=== PATIENT | male | born 1990 | race Asian ===

== ENCOUNTER 2017-01-07 01:13 | Emergency (ER) | payer OTHER ==
[2017-01-07 01:19] VITALS: O2SAT 96
[2017-01-07] MEDS ORDERED: NS 1,000 ML IV ONE (01:27)
--- NOTE | 2017-01-07 01:29 | EDPHY ---
H & P Stated Complaint: fever, abd pain x 6 days Time Seen by Provider: 01/07/17 01:23 HPI/ROS: CHIEF COMPLAINT: Right upper quadrant pain HISTORY OF PRESENT ILLNESS: The patient is a 26-year-old man who states that he has had right upper quadrant pain for the last 6 days. He states that he thinks that it is gas because when he stands up it causes severe pain and lightheadedness but when he lies down he feels much better and is able to burp and passed gas. This makes his symptoms go away until he stands up again. He is not had any vomiting or nausea. No diarrhea. He had a fever last week but it was associated with a sore throat runny nose that have now resolved. He denies trauma. He denies lower abdominal pain. No constipation. REVIEW OF SYSTEMS: Constitutional: denies: chills, fever, recent illness, recent injury EENTM: denies: blurred vision, double vision, nose congestion Respiratory: denies: cough, shortness of breath Cardiac: denies: chest pain, irregular heart rate, lightheadedness, palpitations Gastrointestinal/Abdominal: See HPI Genitourinary: denies: dysuria, frequency, hematuria, pain Musculoskeletal: denies: joint pain, muscle pain Skin: denies: lesions, rash, jaundice, bruising Neurological: denies: headache, numbness, paresthesia, tingling, dizziness, weakness Hematologic/Lymphatic: denies: blood clots, easy bleeding, easy bruising Immunologic/allergic: denies: HIV/AIDS, transplant EXAM: GENERAL: Well-appearing, well-nourished and in no acute distress. HEAD: Atraumatic, normocephalic. EYES: Pupils equal round and reactive to light, extraocular movements intact, sclera anicteric, conjunctiva are normal. ENT: TMs normal, nares patent, oropharynx clear without exudates. Moist mucous membranes. NECK: Normal range of motion, supple without lymphadenopathy or JVD. LUNGS: Breath sounds clear to auscultation bilaterally and equal. No wheezes rales or rhonchi. HEART: Regular rate and rhythm without murmurs, rubs or gallops. ABDOMEN: Soft, nontender, normoactive bowel sounds. No guarding, no rebound. No masses appreciated. BACK: No CVA tenderness, no spinal tenderness, step-offs or deformities EXTREMITIES: Normal range of motion, no pitting or edema. No clubbing or cyanosis. NEUROLOGICAL: Cranial nerves II through XII grossly intact. Normal speech, normal gait. 5/5 strength, normal movement in all extremities, normal sensation PSYCH: Normal mood, normal affect. SKIN: Warm, dry, normal turgor, no visible rashes or lesions. Source: Patient Exam Limitations: No limitations - Personal History Current Tetanus/Diphtheria Vaccine: Unsure - Medical/Surgical History Hx Asthma: No Hx Chronic Respiratory Disease: No Hx Diabetes: No Hx Cardiac Disease: No Hx Renal Disease: No Hx Cirrhosis: No Hx Alcoholism: No Hx HIV/AIDS: No Hx Splenectomy or Spleen Trauma: No Other PMH: PMHx: denies. PSHx: Tonsillectomy - Family History Significant Family History: No pertinent family hx - Social History Smoking Status: Never smoked Alcohol Use: Sober Drug Use: None Constitutional: Initial Vital Signs Temperature (C) 36.6 C 01/07/17 01:16 Heart Rate 54 L 01/07/17 01:16 Respiratory Rate 14 01/07/17 01:16 Blood Pressure 130/60 H 01/07/17 01:16 O2 Sat (%) 96 01/07/17 01:16 O2 Delivery Mode Room Air Allergies/Adverse Reactions: No Known Allergies Allergy (Verified 08/06/13 04:05) Home Medications: Medication Instructions Recorded Simethicone [Mylicon] 80 mg PO TID PRN #30 tabchew 01/07/17 Medical Decision Making - Diagnostics Imaging: Discussed imaging studies w/ call center operations manager Radiologist ED Course/Re-evaluation: The patient's abdominal exam is benign. Negative Fernandez sign, will obtain lab work and ultrasound to evaluate further. 2:30 a.m.. The patient states that he feels completely better after receiving IV fluids. We discussed the small microscopic hematuria. He states that his brother has kidney stones and this does not seem like a kidney stone to him. He does not have any urinary complaints. He thinks that this is primarily gas. I will prescribe him simethicone and he will follow up with his regular doctor. We discussed indications for returning to the emergency department. His lab work otherwise is completely reassuring. Differential Diagnosis: Partial list of the Differential diagnosis considered include but were not limited to; gas, biliary disease, and although unlikely based on the history and physical exam, I also considered urinary tract infection, kidney stone, appendicitis, obstruction, constipation . I discussed these differential diagnoses and the plan with the patient as well as the usual and expected course. The patient understands that the diagnosis is provisional and that in medicine we are not always correct and that further workup is often warranted. Usual and customary warnings were given. All of the patient's questions were answered. The patient was instructed to return to the emergency department should the symptoms at all worsen or return, otherwise to followup with the physician as we discussed. - Data Points Laboratory Results: Laboratory Results 01/07/17 01:35 01/07/17 01:35 01/07/17 01/07/17 01/07/17 02:09 01:35 01:35 WBC 4.60 10^3/uL 10^3/uL (3.80-9.50) RBC 6.42 10^6/uL H 10^6/uL (4.40-6.38) Hgb 14.4 g/dL g/dL (13.7-17.5) Hct 45.1 % % (40.0-51.0) MCV 70.2 fL L fL (81.5-99.8) MCH 22.4 pg L pg (27.9-34.1) MCHC 31.9 g/dL L g/dL (32.4-36.7) RDW 14.8 % % (11.5-15.2) Plt Count 219 10^3/uL 10^3/uL (150-400) MPV 11.7 fL fL (8.7-11.7) Neut % (Auto) 30.4 % L % (39.3-74.2) Lymph % (Auto) 50.7 % H % (15.0-45.0) [place] % (Auto) 11.1 % % (4.5-13.0) Eos % (Auto) 6.5 % % (0.6-7.6) Baso % (Auto) 1.3 % % (0.3-1.7) Nucleat RBC Rel Count 0.0 % % (0.0-0.2) Absolute Neuts (auto) 1.40 10^3/uL L 10^3/uL (1.70-6.50) Absolute Lymphs (auto) 2.33 10^3/uL 10^3/uL (1.00-3.00) Absolute Monos (auto) 0.51 10^3/uL 10^3/uL (0.30-0.80) Absolute Eos (auto) 0.30 10^3/uL 10^3/uL (0.03-0.40) Absolute Basos (auto) 0.06 10^3/uL 10^3/uL (0.02-0.10) Absolute Nucleated RBC 0.00 10^3/uL 10^3/uL (0-0.01) Immature Gran % 0.0 % % (0.0-1.1) Immature Gran # 0.00 10^3/uL 10^3/uL (0.00-0.10) Sodium 142 mEq/L mEq/L (134-144) Potassium 4.2 mEq/L mEq/L (3.5-5.2) Chloride 101 mEq/L mEq/L (97-110) Carbon Dioxide 25 mEq/l mEq/l (22-31) Anion Gap 16 mEq/L mEq/L (8-16) BUN 17 mg/dL mg/dL (7-23) Creatinine 0.9 mg/dL mg/dL (0.7-1.3) Estimated GFR > 60 Glucose 99 mg/dL mg/dL (70-100) Calcium 9.9 mg/dL mg/dL (8.5-10.4) Total Bilirubin 0.6 mg/dL mg/dL (0.1-1.4) Conjugated Bilirubin 0.3 mg/dL mg/dL (0.0-0.5) Unconjugated Bilirubin 0.3 mg/dL mg/dL (0.0-1.1) AST 25 IU/L IU/L (17-59) ALT 46 IU/L IU/L (21-72) Alkaline Phosphatase 69 IU/L IU/L (38-126) Total Protein 7.9 g/dL g/dL (6.3-8.2) Albumin 4.7 g/dL g/dL (3.5-5.0) Lipase 61 IU/L IU/L (23-300) Urine Color YELLOW Urine Appearance CLEAR Urine pH 6.0 (5.0-7.5) Ur Specific [place] 1.021 (1.002-1.030) Urine Protein NEGATIVE (NEGATIVE) Urine Ketones NEGATIVE (NEGATIVE) Urine Blood NEGATIVE (NEGATIVE) Urine Nitrate NEGATIVE (NEGATIVE) Urine Bilirubin NEGATIVE (NEGATIVE) Urine Urobilinogen NEGATIVE EU EU (0.2-1.0) Ur Leukocyte Esterase NEGATIVE (NEGATIVE) Urine RBC 15-25 /hpf H /hpf (0-3) Urine WBC 1-3 /hpf /hpf (0-3) Ur Epithelial Cells TRACE /lpf /lpf (NONE-1+) Urine Mucus TRACE /lpf /lpf (NONE-1+) Urine Sperm PRESENT /hpf /hpf (NONE SEEN) Urine Glucose NEGATIVE (NEGATIVE) Medications Given: Discontinued Medications Sodium Chloride (Ns) 1,000 mls @ 0 mls/hr IV EDNOW ONE; Wide Open PRN Reason: Protocol Stop: 01/07/17 01:28 Last Admin: 01/07/17 02:08 Dose: 1,000 mls Simethicone (Mylicon) 80 mg PO EDNOW ONE Stop: 01/07/17 02:16 Last Admin: 01/07/17 02:47 Dose: 80 mg Departure - Departure Disposition: Home, Routine, Self-Care Clinical Impression: Chronic right upper quadrant pain Condition: Fair Instructions: Gas and Bloating (ED), Abdominal Pain (ED) Referrals: NONE *PRIMARY CARE P,. [Primary Care Provider] - As per Instructions Ritu Isaacs MD [Medical Doctor] - As per Instructions Prescriptions: Simethicone [Mylicon] 80 mg PO TID PRN #30 tabchew PRN Reason: Gas
[2017-01-07 01:39] LABS: ADD DIFF? NO; ADD MORPH? NO; ADD SCAN? NO; ATYPICAL LYMPHOCYTE FLAG 10 (0-99); FRAGMENT RBC FLAG 20 (0-99); HEMATOCRIT 45.1 % (40.0-51.0); HEMOGLOBIN 14.4 g/dL (13.7-17.5); LEFT SHIFT FLG 0 (0-99); LIPEMIA HEMOLYSIS FLAG 80 (0-99); MEAN CELL HEMOGLOBIN 22.4 pg (27.9-34.1); MEAN CELL HEMOGLOBIN CONCENTR. 31.9 g/dL (32.4-36.7); MEAN CELL VOLUME 70.2 fL (81.5-99.8); MEAN PLATELET VOLUME 11.7 fL (8.7-11.7); PLATELET CLUMPS FLAG 0 (0-99); PLATELET COUNT 219 10^3/uL (150-400); RED BLOOD CELL COUNT 6.42 10^6/uL (4.40-6.38); RED CELL DISTRIBUTION WIDTH 14.8 % (11.5-15.2)
[2017-01-07 01:52] LABS: ALANINE AMINOTRANSFERASE 46 IU/L (21-72); ALBUMIN 4.7 g/dL (3.5-5.0); ALKALINE PHOSPHATASE 69 IU/L (38-126); ANION GAP 16 mEq/L (8-16); ASPARTATE AMINOTRANSFERASE 25 IU/L (17-59); BILIRUBIN,TOTAL 0.6 mg/dL (0.1-1.4); BILIRUBIN-CONJUGATED 0.3 mg/dL (0.0-0.5); BILIRUBIN-UNCONJUGATED 0.3 mg/dL (0.0-1.1); CALCIUM 9.9 mg/dL (8.5-10.4); CARBON DIOXIDE 25 mEq/l (22-31); CHLORIDE 101 mEq/L (97-110); CREATININE 0.9 mg/dL (0.7-1.3); GLOMERULAR FILTRATION RATE > 60; GLUCOSE 99 mg/dL (70-100); POTASSIUM 4.2 mEq/L (3.5-5.2); SODIUM 142 mEq/L (134-144); TOTAL PROTEIN 7.9 g/dL (6.3-8.2)
[2017-01-07] MEDS ORDERED: SIMETHICONE 80 MG TAB CHEW PO ONE (02:15)
[2017-01-07 02:18] LABS: COLOR YELLOW; LEUKOCYTE ESTERASE,URINE NEGATIVE (NEGATIVE); NITRITE,URINE NEGATIVE (NEGATIVE)
[2017-01-07 02:23] LABS: MUCUS TRACE /lpf (NONE-1+); RBC,URINE 15-25 /hpf (0-3)
[2017-01-07 02:51] VITALS: BP 128/75; PULSE 81; RESP 16; TEMP 98.2
== END 2017-01-07 02:50 | disposition home or self-care (01) ==
DX: R10.11 Right upper quadrant pain (principal); G89.29 Other chronic pain; E86.9 Volume depletion, unspecified

== ENCOUNTER 2017-05-18 09:11 | Emergency (ER) | payer OTHER ==
[2017-05-18] MEDS ORDERED: NS 1,000 ML IV ONE (09:29)
[2017-05-18] MEDS ORDERED: ONDANSETRON 4 MG/2 ML VIAL IVP ONE (09:29)
[2017-05-18] MEDS ORDERED: ONDANSETRON DISINTEGRATING 4 MG TAB PO ONE (09:34)
[2017-05-18] MEDS ORDERED: PROMETHAZINE HCL 25 MG/ML INJ IVP ONE (09:39)
--- NOTE | 2017-05-18 09:45 | EDPHY ---
General Narrative: CHIEF COMPLAINT: Vomiting and diarrhea HISTORY OF PRESENT ILLNESS: Patient complains of waking at 4:00 a.m. with sudden onset of vomiting. He had multiple episodes was at 4:00 a.m. 530 along with chills. Went back to sleep for couple of hours. He awoke again at 8:00 a.m. with 4 episodes of vomiting and some diarrhea. There was no blood in the emesis or stool. No abdominal pain but there was some cramping with dry heaving. He was also chills and sweating. He has had no headache, neck pain or stiffness, chest pain, cough, shortness of breath, body aches or fever. He feels that this is food-borne as his friend has had similar complaints in the ate the same meal at a restaurant last night. He has no trauma or injury. No other associated complaints or modifying factors. REVIEW OF SYSTEMS: Ten systems reviewed and are negative unless otherwise noted in the HPI PCP: None locally. SPECIALISTS: None PAST MEDICAL HISTORY: Orthopedic injuries PAST SURGICAL HISTORY: Orthopedic. Remotely SOCIAL HISTORY: Nonsmoker. No alcohol or drug use. 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 Originally from [facility] FAMILY HISTORY: Noncontributory EXAMINATION General Appearance: Alert, no distress Head: normocephalic, atraumatic Eyes: Pupils equal and round, no conjunctival pallor or injection ENT, Mouth: Mucous membranes slightly dry. Uvula is midline and airway is widely patent. Neck: Normal inspection, supple, non-tender Respiratory: Lungs are clear to auscultation Cardiovascular: Regular rate and rhythm. No murmur Gastrointestinal: Abdomen is soft and nontender. Back: non-tender, no bony abnormalities Neurological: A&O, nonfocal, normal gait Skin: Warm and dry, no rash Extremities: Nontender, no pedal edema Psychiatric: Mood and affect normal DIFFERENTIAL DIAGNOSES: Including but not limited to food-borne illness, gastroenteritis, enteritis, gastritis MDM: 9:40 a.m. Nausea, vomiting diarrhea and timeframe that is consistent with food borne illness. He also has a friend who ate the same meal with similar symptoms this morning. He continues to feel nauseated and has a difficulty keeping liquids down, thus I will order L of IV fluid and nausea medications. His abdominal exam is benign. Vital signs are stable. I do not feel he warrants any imaging or further testing. He is resting comfortably in no acute distress without active vomiting. 10:30 a.m. Laboratory studies are unremarkable with mild abnormalities consistent with his illness. I have re-evaluated the patient is feeling much better after the IV fluid, promethazine and Zofran. I do feel he is stable for discharge home. Discharged home with nausea medications. I discussed the likely self-limiting nature of this illness. We discussed ED precautions. We discussed follow up with [facility] at . He is comfortable this plan and discharged home stable condition. SUPERVISION: Patient was independently examined, but I discussed the case with my secondary supervising physician Dr. Rushing - History Smoking Status: Never smoked - Objective Vital Signs: Initial Vital Signs Temperature (C) 97.5 F 05/18/17 09:13 Heart Rate 78 05/18/17 09:13 Respiratory Rate 18 05/18/17 09:13 Blood Pressure 101/48 L 05/18/17 09:13 O2 Sat (%) 97 05/18/17 09:13 O2 Delivery Mode Room Air Allergies/Adverse Reactions: No Known Allergies Allergy (Verified 05/18/17 09:12) Home Medications: Medication Instructions Recorded Ondansetron Odt [Zofran Odt 4 mg 4 mg PO Q6 PRN #12 tab 05/18/17 (*)] Promethazine HCl [Phenergan 25mg 25 mg PO Q8 PRN #12 tab 05/18/17 (*)] Laboratory Results: Laboratory Results 05/18/17 09:55 05/18/17 09:55 05/18/17 05/18/17 09:55 09:55 WBC 8.22 10^3/uL 10^3/uL (3.80-9.50) RBC 6.40 10^6/uL H 10^6/uL (4.40-6.38) Hgb 14.4 g/dL g/dL (13.7-17.5) Hct 43.4 % % (40.0-51.0) MCV 67.8 fL L fL (81.5-99.8) MCH 22.5 pg L pg (27.9-34.1) MCHC 33.2 g/dL g/dL (32.4-36.7) RDW 15.2 % % (11.5-15.2) Plt Count 174 10^3/uL 10^3/uL (150-400) MPV 11.7 fL fL (8.7-11.7) Neut % (Auto) 90.4 % H % (39.3-74.2) Lymph % (Auto) 4.3 % L % (15.0-45.0) [place] % (Auto) 4.5 % % (4.5-13.0) Eos % (Auto) 0.4 % L % (0.6-7.6) Baso % (Auto) 0.2 % L % (0.3-1.7) Nucleat RBC Rel Count 0.0 % % (0.0-0.2) Absolute Neuts (auto) 7.43 10^3/uL H 10^3/uL (1.70-6.50) Absolute Lymphs (auto) 0.35 10^3/uL L 10^3/uL (1.00-3.00) Absolute Monos (auto) 0.37 10^3/uL 10^3/uL (0.30-0.80) Absolute Eos (auto) 0.03 10^3/uL 10^3/uL (0.03-0.40) Absolute Basos (auto) 0.02 10^3/uL 10^3/uL (0.02-0.10) Absolute Nucleated RBC 0.00 10^3/uL 10^3/uL (0-0.01) Immature Gran % 0.2 % % (0.0-1.1) Immature Gran # 0.02 10^3/uL 10^3/uL (0.00-0.10) Platelet Estimate Pending Smear Review By Pending Sodium 144 mEq/L mEq/L (134-144) Potassium 4.7 mEq/L mEq/L (3.5-5.2) Chloride 103 mEq/L mEq/L (97-110) Carbon Dioxide 27 mEq/l mEq/l (22-31) Anion Gap 14 mEq/L mEq/L (8-16) BUN 23 mg/dL mg/dL (7-23) Creatinine 1.0 mg/dL mg/dL (0.7-1.3) Estimated GFR > 60 Glucose 118 mg/dL H mg/dL (70-100) Calcium 9.7 mg/dL mg/dL (8.5-10.4) Lipase 54 IU/L IU/L (23-300) Medications Given: Discontinued Medications Sodium Chloride (Ns) 1,000 mls @ 0 mls/hr IV EDNOW ONE; Wide Open PRN Reason: Protocol Stop: 05/18/17 09:30 Last Admin: 05/18/17 09:51 Dose: 1,000 mls Ondansetron HCl (Zofran Odt) 4 mg PO EDNOW ONE Stop: 05/18/17 09:35 Last Admin: 05/18/17 09:39 Dose: Not Given Ondansetron HCl (Zofran) 4 mg IVP EDNOW ONE Stop: 05/18/17 09:30 Last Admin: 05/18/17 09:52 Dose: 4 mg Promethazine HCl (Phenergan) 12.5 mg IVP ONCE ONE Stop: 05/18/17 09:40 Last Admin: 05/18/17 09:52 Dose: 12.5 mg Departure - Departure Disposition: Home, Routine, Self-Care Clinical Impression: Foodborne gastroenteritis Vomiting Qualifiers: Vomiting type: unspecified Vomiting Intractability: non-intractable Nausea presence: with nausea Qualified Code(s): R11.2 - Nausea with vomiting, unspecified Diarrhea Qualifiers: Diarrhea type: presumed infectious Qualified Code(s): R19.7 - Diarrhea, unspecified Condition: Good Instructions: Clear Liquid Diet (ED), Gastroenteritis (ED) Additional Instructions: 1. Medications as prescribed as needed 2. Increase fluid intake today 3. ED precautions for worsening symptoms, abdominal pain, flank pain, fever, bloody emesis or stool Referrals: [facility],. [Clinic] - As per Instructions Prescriptions: Ondansetron Odt [Zofran Odt 4 mg (*)] 4 mg PO Q6 PRN #12 tab PRN Reason: Nausea/Vomiting, Use 1st Promethazine HCl [Phenergan 25mg (*)] 25 mg PO Q8 PRN #12 tab PRN Reason: Nausea/Vomiting, Use 1st
[2017-05-18 10:01] LABS: PLATELET COUNT 174 10^3/uL (150-400)
[2017-05-18 10:56] VITALS: BP 115/56; PULSE 76; RESP 16; TEMP 98.6; O2SAT 98
== END 2017-05-18 10:56 | disposition home or self-care (01) ==
DX: A05.9 Bacterial foodborne intoxication, unspecified (principal); E86.9 Volume depletion, unspecified
CPT/HCPCS: 96374; J2405; J2550